=== PATIENT | male | born 1985 | race Hispanic/Latino ===

== ENCOUNTER 2019-03-13 09:40 | Emergency (ER) | payer BC ==
[2019-03-13 09:56] VITALS: TEMP 97.5
--- NOTE | 2019-03-13 10:07 | ED.PDOC ---
History of Present Illness - General Chief Complaint: Abdominal Pain Stated Complaint: abd pain and rectal bleeding with hx of hemmorriod Time Seen by Provider: 03/13/19 10:01 Information Source: patient Exam Limitations: no limitations - History of Present Illness Initial Comments: 3D HEMATOCHEZIA. BRBPR IN STOOLS JUST WHEN DEFECATES. H/O HEMORRHOID 1 MO AGO, WHICH HE HAD TO MANUALLY PUSH BACK INSIDE. NO NVD. NO MEDS. NO PMH. Abdominal Pain Onset Location: LLQ Pain Radiation: no radiation Quality: moderate, steady Timing/Duration: days Improving Factors: nothing Worsening Factors: nothing Associated Symptoms: denies symptoms Review of Systems - Review of Systems Constitutional: Denies: fever, weakness EENTM: States: no symptoms reported Respiratory: States: no symptoms reported Cardiology: States: no symptoms reported Gastrointestinal/Abdominal: States: abdominal pain, other - BRIGHT RED BLOOD IN STOOLS. . Denies: constipation, diarrhea, nausea, vomiting Genitourinary: Denies: dysuria, frequency Musculoskeletal: States: no symptoms reported Skin: States: no symptoms reported Neurological: States: no symptoms reported Endocrine: States: no symptoms reported Hematologic/Lymphatic: States: no symptoms reported All other Systems: Reviewed and Negative Past Medical History (General) - Patient Medical History Hx Asthma: No Hx Cardiac Disorders: No Hx Congestive Heart Failure: No Hx Hypertension: No Hx Diabetes: No Hx Gastroesophageal Reflux: No Hx Renal Disease: No Hx Cancer: No Hx Hepatitis C: No - Vaccination History Hx Tetanus, Diphtheria Vaccination: No Hx Influenza Vaccination: No Hx Pneumococcal Vaccination: No Immunizations Up to Date: No - Social History Hx Tobacco Use: No Hx Alcohol Use: Yes - NOT IN LAST 2 WEEKS Hx Substance Use: No Hx Substance Use Treatment: No Hx Depression: No Family Medical History - Family History Mother Family History: Unknown Living Status: Still Living Physical Exam - Physical Exam General Appearance: Alert, Well Groomed Eyes, Ears, Nose, Throat Exam: PERRL/EOMI, normal ENT inspection Neck: non-tender, full range of motion Respiratory: chest non-tender, lungs clear Cardiovascular/Chest: normal peripheral pulses, regular rate, rhythm Peripheral Pulses: No deficit Gastrointestinal/Abdominal: normal bowel sounds, soft, no organomegaly, no pulsatile mass, tenderness - LLQ Rectal Exam: normal rectal tone, other - NO EXTERNAL HEMORRHOIDS. NO GROSS BLOOD. EXAM APPROPRIATELY TENDER. LLQ TTP. Back Exam: normal inspection, no CVA tenderness Extremity: normal range of motion, non-tender Neurologic: senior network engineer II-XII nml as tested, no motor/sensory deficits Skin Exam: normal color, warm/dry Lymphatic: no adenopathy Progress - Progress Progress: 03/13/19 13:30 CBC, CMP, CT NEG. HEMEOCCULT POS. MOST LIKELY INTERNAL HEMORRHOIDS, SINCE NO EXTERNAL HEMORRHOIDS ON EXAM AND PT HAS PAINLESS HEMATOCHEZIA ON TOILET PAPER DURING STOOLS, AND PT STATES HE NEEDS TO SOMETIMES STRAIN AT STOOLS. HOWEVER, HE HAS A MILD LLQ PAIN THUS REFERRING TO GI FOR POSSIBLE SCOPE TO ENSURE NO POLYPS OR COLON CA. PT'S BP RUNS ON THE LOWER SIDE NORMALLY. HE DENIES ANY LIGHT HEADEDNESS OR SX. NOTE THE RECTAL EXAM WAS NEG IN ER GROSSLY (BUT OCCULT POS) AND THERE IS NO ACTIVE BLEEDING. HE JUST SEES BLOOD ON T.P. WHEN STOOLS. THUS HE IS SAFE FOR DC TO HOME WITH GI F/U. PT SPEAKS IRANIAN BUT I ALSO OBTAINED APPRENTICE COOK TO BE SURE. GALEN, DAYCARE PROVIDER, WAS PRESENT AT BEDSIDE AND INTERPRETED MY FINDINGS AND PLAN. 03/13/19 13:33 Departure - Departure Clinical Impression: Hematochezia, LLQ abdominal pain Disposition: Discharge to Home or Self Care Condition: Good Departure Forms: ED Discharge - Pt. Copy, Patient Portal Self Enrollment Instructions: Hemorrhoids (DC) Activity: increase activity as tolerated Referrals: ROSE BOWERS MD [Consulting Staff] - 1-2 Weeks Home Medications: Ambulatory Orders NK 03/13/19 Additional Instructions: Please call Dr. Hart's office for an appointment in [place]. He is the intestine specialist. Please buy Colace at the pharmacy. It is a stool softener and will facilitate b owel movements. Please increase your intake of fruits and vegetables.
--- NOTE | 2019-03-13 11:12 | CT ---
Study: CT abdomen and pelvis. Indication: LLQ PAIN, HEMATOCHEZIA Technique: CT of the abdomen and pelvis obtained without intravenous contrast. This exam was performed according to our departmental dose-optimization program, which includes automated exposure control, adjustment of the mA and/or kV according to patient size and/or use of iterative reconstruction technique. Comparison: None. Findings: Lower chest, liver, gallbladder, pancreas, spleen, adrenal glands, kidneys, bladder, prostate gland demonstrate normal unenhanced CT appearance. Tiny hiatal hernia. Small bowel, colon, and appendix unremarkable. No free fluid. No free air. No pathologically enlarged lymphadenopathy. Postoperative changes of the anterior pelvic wall. No acute osseous abnormality. Impression: No hydronephrosis or nephrolithiasis. Electronically signed by: Jose Rain MD 03/13/2019 11:10 AM CDT
[2019-03-13 12:54] VITALS: O2SAT 98
[2019-03-13 14:01] VITALS: BP 142/83
== END 2019-03-13 14:01 | disposition home or self-care (01) ==
LOC: ER 09:40
DX: K92.1 Melena (principal); R10.32 Left lower quadrant pain; Z87.19 Personal history of other diseases of the digestive system